=== PATIENT | female | born 1950 | race Caucasian/White ===

== ENCOUNTER 2023-12-05 16:50 | Emergency (ER) | payer MEDICARE, SELFPAY ==
[2023-12-05 17:04] VITALS: BP 219/88; PULSE 62; RESP 16; TEMP 37.2; O2SAT 96; BMI 20.9
--- NOTE | 2023-12-05 18:34 | ED_ITS ---
HPI - Fall <Nikita Canseco PA-C - Last Filed: 12/05/23 21:19> General Chief Complaint: Fall Stated Complaint: fall, head injury Time Seen by Provider: 12/05/23 18:33 Source: patient Mode of arrival: Ambulatory History of Present Illness HPI Narrative: This is a 73-year-old female presents emergency department due to a mechanical ground level fall. She was working with a long stick to cut branches when she fell backwards hitting her head on the ground. She had not lose conscious. This happened a couple of hours ago. She does not report any slurred speech, facial drooping, extremity weakness. Tetanus is not up-to-date. Not on blood thinners. Denies any neck pain or any extremity pain or pain to the rest of her body. Related Data Previous Rx's Medication Instructions Recorded amlodipine 10 mg tablet 10 mg PO DAILY #30 tabs 12/05/23 aspirin 81 mg capsule 81 mg PO DAILY #60 caps 12/05/23 clopidogrel 75 mg tablet (Plavix) 75 mg PO DAILY #21 tabs 12/05/23 Allergies Allergy/AdvReac Type Severity Reaction Status Date / Time codeine Allergy Anaphylaxis Verified 12/05/23 17:03 latex Allergy Anaphylaxis Verified 12/05/23 17:03 morphine Allergy Anaphylaxis Verified 12/05/23 17:03 soap Allergy Anaphylaxis Verified 12/05/23 17:03 Review of Systems <Nikita Canseco PA-C - Last Filed: 12/05/23 21:19> Review of Systems Narrative: GENERAL: Denies chills, fatigue, malaise, fever, sweats. HEENT: Reports head pain Denies sinus pain, ear pain, sore throat, difficulty swallowing, dizziness. RESPIRATORY: Denies dyspnea, cough, wheezing, hemoptysis, sputum. CARDIOVASCULAR: Denies chest pain, palpitations, orthopnea, edema, GASTROINTESTINAL: Denies nausea, vomiting, abdominal pain, diarrhea, constipation, melena. : Denies dysuria, frequency, incontinence, hematuria, urinary retention. MUSCULOSKELETAL: denies weakness, joint pain, or bony pain SKIN: Denies rash, skin lesions, or other NEUROLOGIC: Denies weakness, headache, numbness, change in speech, confusion, seizures, incoordination. PSYCHIATRIC: No concerning psychosocial issues. 12 point review of systems is negative except for those stated above Patient History <Nikita Canseco PA-C - Last Filed: 12/05/23 21:19> Social History Smoking Status: Never smoker Smoking Status: Never smoker Substance Use Type: does not use Exam <Nikita Canseco PA-C - Last Filed: 12/05/23 21:19> Narrative Exam Narrative: GENERAL: Well-developed patient, in mild distress. HEAD: Atraumatic. Normocephalic. EYES: Pupils equal round and reactive. Extraocular motions intact. No scleral icterus. No injection or drainage. ENT: Nose without bleeding, purulent drainage. Throat without erythema, tonsillar hypertrophy or exudate. Airway patent. NECK: Trachea midline. Non tender cervical spine EXTREMITIES: No edema or joint tenderness. NEURO: AOx3. Cranial nerves 2-12 intact SKIN: Superficial abrasion with dried blood to the scalp, no deeper lacerations CARDIOVASCULAR: Regular rate and rhythm without murmurs, gallops, or rubs. RESPIRATORY: Clear to auscultation. Breath sounds equal bilaterally. No wheezes, rales, or rhonchi. GASTROINTESTINAL: Abdomen soft, non-tender, nondistended. BACK: Nontender without deformity or crepitance. No flank tenderness. Initial Vital Signs Initial Vital Signs: Vital Signs Temperature 99 F 12/05/23 17:04 Pulse Rate 62 12/05/23 17:04 Respiratory Rate 16 12/05/23 17:04 Blood Pressure 219/88 H 12/05/23 17:04 Pulse Oximetry 96 12/05/23 17:04 Oxygen Delivery Method Room Air 12/05/23 17:04 <Amirah Hernández MD - Last Filed: 12/06/23 03:24> Initial Vital Signs Initial Vital Signs: Vital Signs Temperature 99 F 12/05/23 17:04 Pulse Rate 62 12/05/23 17:04 Respiratory Rate 16 12/05/23 17:04 Blood Pressure 219/88 H 12/05/23 17:04 Pulse Oximetry 96 12/05/23 17:04 Oxygen Delivery Method Room Air 12/05/23 17:04 Course <Nikita Canseco PA-C - Last Filed: 12/05/23 21:19> Orders Ordered: ED Orders 12/05/23 18:44 CT head/brain wo con Stat 12/05/23 19:52 CT angio head and neck Stat Discontinued Medications Amlodipine Besylate (Amlodipine 5 Mg Tablet) 10 mg PO NOW ONE Stop: 12/05/23 20:37 Last Admin: 12/05/23 20:40 Dose: 10 mg Documented By: HNG Diphtheria/Tetanus/Acell Pertussis (Tet,Diph,Pertuss(Acell),Vac/Pf 0.5 Ml Syringe) 0.5 ml IM .ONCE ONE Stop: 12/05/23 18:45 Last Admin: 12/05/23 19:12 Dose: 0.5 ml Documented By: RB Vital Signs Vital signs: Vital Signs - 8 hr 12/05/23 19:30 12/05/23 20:32 12/05/23 21:11 Pulse Rate 64 65 78 Respiratory Rate 15 16 16 Blood Pressure 210/92 H 260/100 H 222/86 H Pulse Oximetry 96 97 Oxygen Delivery Method Room Air Room Air <Amirah Hernández MD - Last Filed: 12/06/23 03:24> Orders Ordered: ED Orders 12/05/23 18:44 CT head/brain wo con Stat 12/05/23 19:52 CT angio head and neck Stat Discontinued Medications Amlodipine Besylate (Amlodipine 5 Mg Tablet) 10 mg PO NOW ONE Stop: 12/05/23 20:37 Last Admin: 12/05/23 20:40 Dose: 10 mg Documented By: HNG Diphtheria/Tetanus/Acell Pertussis (Tet,Diph,Pertuss(Acell),Vac/Pf 0.5 Ml Syringe) 0.5 ml IM .ONCE ONE Stop: 12/05/23 18:45 Last Admin: 12/05/23 19:12 Dose: 0.5 ml Documented By: RB Vital Signs Vital signs: Vital Signs - 8 hr 12/05/23 19:30 12/05/23 20:32 12/05/23 21:11 Pulse Rate 64 65 78 Respiratory Rate 15 16 16 Blood Pressure 210/92 H 260/100 H 222/86 H Pulse Oximetry 96 97 Oxygen Delivery Method Room Air Room Air MDM - Fall <Nikita Canseco PA-C - Last Filed: 12/05/23 21:19> Imaging Data CT scan - head: Radiologist's Impression: [address] [address] [address] Scan Report Signed Patient: Edith Sofia MR#: [id number] : 1950 Acct:[id number] Age/Sex: 73 / F Date of Service: 12/05/23 Loc: ED Accession Number: [id number] Procedure: CT head/brain wo con Ordering Provider: Nikita Canseco P.A-C PROCEDURE: CT HEAD/BRAIN WO CON INDICATIONS: Head injury TECHNIQUE: Noncontrast 4.5 mm thick angled axial sections acquired from the foramen magnum to the vertex, with coronal and sagittal reformats. For radiation dose reduction, the following was used: automated exposure control, adjustment of mA and/or kV according to patient size. COMPARISON: None. FINDINGS: Image quality: Diagnostic. CSF spaces: Basal cisterns are patent. No extra-axial fluid collections. Ventricles are normal in size and shape. Brain: No midline shift. No intracranial masses or hemorrhage. Area of hypodensity at the left parietal/occipital lobe, (11/15). Periventricular hypodensity consistent with chronic microvascular ischemic change. Age-related parenchymal loss. Skull and face: Calvarium and visualized facial bones are intact, without suspicious lesions. Sinuses: Mild mucosal thickening at the right maxillary sinus and paranasal sinuses. Mastoids are clear. IMPRESSION: No acute intracranial hemorrhage. Area of hypodensity at the left parietal/occipital lobe. Suspect evolving infarct. Recommend follow-up brain MRI. Dictated by: Yunior Delcid M.D. on 12/05/2023 at 19:14 Approved by: Yunior Delcid M.D. on 12/05/2023 at 19:17 CTA - brain/neck: Radiologist's Impression: [place] [address] CT Scan Report Signed Patient: Edith Sofia MR#: [id number] : 1950 Acct:[id number] Age/Sex: 73 / F Date of Service: 12/05/23 Loc: ED Accession Number: [id number] Procedure: CT angio head and neck Ordering Provider: Nikita Canseco P.A-C PROCEDURE: CT ANGIO HEAD AND NECK INDICATIONS: f/u possible evolving infarct TECHNIQUE: After the administration of intravenous contrast, 1 mm thick sections acquired from the aortic arch through the [place] of [place]. 3-dimensional cetmzyl-mpbhwhyoa-uzqpbxughc (MIP) and/or volume rendering reformats were acquired of the central intracranial vasculature and neck separately. For radiation dose reduction, the following was used: automated exposure control, adjustment of mA and/or kV according to patient size. COMPARISON: [facility], CT, CT HEAD/BRAIN WO CON, 12/05/2023, 18:50. FINDINGS: Image quality: Diagnostic. BRAIN: CSF spaces: Ventricles are normal in size and shape. Basal cisterns are patent. No extra-axial fluid collections. Brain: No significant abnormality of the brain can be seen. Skull and face: Calvarium and facial bones appear intact, without suspicious lesions. Orbits appear normal. Sinuses: Sinuses and mastoids are clear. HEAD CT ANGIOGRAPHY: Anterior circulation: Intracranial internal carotid arteries are normal in size and flow. The flow within the paired anterior cerebral arteries is normal and symmetric. The flow within the middle cerebral arteries is normal and symmetric. The anterior communicating artery is seen. No aneurysms are seen. Posterior circulation: Visualized portions of the vertebral arteries demonstrate normal caliber, and join to form a normal appearing basilar artery. Flow within the posterior cerebral arteries is normal and symmetric. No aneurysms are seen. NECK CT ANGIOGRAPHY: Carotid system: The great vessels demonstrate a conventional anatomy as they arise from the aortic arch. The origins of the common carotid arteries appear patent. The common carotid arteries demonstrate normal caliber and courses. The bifurcation regions are both widely patent. The internal carotid arteries demonstrate normal calibers and courses. Posterior circulation: The origins of the vertebral arteries both appear widely patent. The more superior extracranial portions of both vertebral arteries also demonstrate normal courses and calibers. They join to form a normal appearing basilar artery. Soft tissues: Visualized neck soft tissues demonstrate no suspicious abnormalities. Bones: No suspicious bony lesions. Visualized cervical spine appears normally aligned. IMPRESSION: 1. No significant intracranial arterial abnormality is seen. 2. No significant abnormality is seen within the arteries of the neck. Any quantitative measurements of stenosis were performed using NASCET criteria. Dictated by: Nacho Jin M.D. on 12/05/2023 at 20:46 Approved by: Nacho Jin M.D. on 12/05/2023 at 20:47 MDM Narrative Medical decision making narrative: ED course: This is a 73-year-old female presents to the emergency department due to mechanical ground level fall. She did hit her head but did not lose conscious. She did have a superficial abrasion to the scalp but no evidence of any deeper lacerations that would benefit from any staple closure. Did not have any neck pain and no other pain to the remainder of her body. Did order a CT head which showed a possible evolving infarct. Discussed the findings with the radiologist who suspected that these were chronic in nature. CTA head and neck were ordered which showed no abnormalities which was reassuring. Discussed case with my attending physician, Dr. Hernández, throughout the encounter. Patient was prescribed dual anti platelet therapy using aspirin and Plavix with the recommendations to follow up with the primary care provider for discussing the continuation of the aspirin as well as monitoring of the infarct. Patient's blood pressure was also noted to be elevated although she was not reporting any chest pain, shortness of breath, headaches, vision changes, or any other conc erning signs or symptoms. We will start on amlodipine 10 mg the recommendation she follow up with the primary care provider for further discussion and possible tapering. CC: Head injury Complicating co-morbidities: None Data collected from: Previous notes Medical records reviewed: Patient was not been to this emergency department in the past Differential considered, but not limited to: Intracranial bleed, ischemic stroke, concussion, skull fracture Exam documented above, pertinent findings include: Patient has no neuro changes on exam Lab Test results independently reviewed as above. Pertinent findings: None obtained Imaging studies independently reviewed: As noted above Scores Used: None MIPS Elements: None Consultations: None Treatments: Amlodipine 10 mg Re-evaluations: None Discussion: Discussed plan with the patient was comfortable with the plan Diagnosis: Intracranial infarct Disposition: see below, along with detailed discharge instructions that have been reviewed with patient as well as indications for ED re-evaluation and additional outpatient follow up Discharge Plan Departure Patient Disposition: Home Clinical Impression: Focal infarction of brain Activity Restrictions/Additional Instructions: Thank you for coming to the [facility] Emergency Department today. As we discussed your CT showed a infarct in part of your brain. This will require monitoring 3 your primary care provider. Please follow up with the in 1 week to discuss further monitoring. Please also take the Plavix and the aspirin for 3 weeks. After 3 weeks you may stop taking the Plavix but please continue taking the aspirin. We have also started you on a blood pressure medication called amlodipine to help with the elevated blood pressures. Please follow up with the primary care provider in 1 week to discuss the continuation and plan for all of these medications. Please be careful with your head wound. There does not appear to be any deeper areas that would benefit from any sangeetha but please be careful while you are washing her hair to avoid opening of the skin any further. Please return to the emergency department if you develop any facial drooping, slurred speech, dizziness, severe head pain, or any other concerning signs or symptoms. I hope you feel better soon. Please follow up with your primary care provider within a week if your symptoms continue. If you do not have a primary care provider please contact the [facility] Resource line at [phone]. They will ask some questions about your medical history and help you get set up with a provider in the community. Prescriptions: New aspirin 81 mg capsule 81 mg PO DAILY Qty: 60 0RF amlodipine 10 mg tablet 10 mg PO DAILY Qty: 30 0RF clopidogrel [Plavix] 75 mg tablet 75 mg PO DAILY Qty: 21 0RF Stand Alone Forms: Patient Portal/API ED Sign-out <Amirah Hernández MD - Last Filed: 12/06/23 03:24> Cosign ED Attending Cosamandaature Attestation: I did not physically evaluate this patient. Reviewed PA note and plan. Patient is to be started on amlodipine and to follow up with primary care.
--- NOTE | 2023-12-05 18:44 | DI.CT.S_ITS ---
PROCEDURE: CT HEAD/BRAIN WO CON INDICATIONS: Head injury TECHNIQUE: Noncontrast 4.5 mm thick angled axial sections acquired from the foramen magnum to the vertex, with coronal and sagittal reformats. For radiation dose reduction, the following was used: automated exposure control, adjustment of mA and/or kV according to patient size. COMPARISON: None. FINDINGS: Image quality: Diagnostic. CSF spaces: Basal cisterns are patent. No extra-axial fluid collections. Ventricles are normal in size and shape. Brain: No midline shift. No intracranial masses or hemorrhage. Area of hypodensity at the left parietal/occipital lobe, (11/15). Periventricular hypodensity consistent with chronic microvascular ischemic change. Age-related parenchymal loss. Skull and face: Calvarium and visualized facial bones are intact, without suspicious lesions. Sinuses: Mild mucosal thickening at the right maxillary sinus and paranasal sinuses. Mastoids are clear. IMPRESSION: No acute intracranial hemorrhage. Area of hypodensity at the left parietal/occipital lobe. Suspect evolving infarct. Recommend follow-up brain MRI. Dictated by: Yunior Delcid M.D. on 12/05/2023 at 19:14 Approved by: Yunior Delcid M.D. on 12/05/2023 at 19:17
[2023-12-05] MEDS: TET,DIPH,PERTUSS(ACELL),VAC/PF 0.5 ML SYRINGE IM (19:12)
[2023-12-05 19:30] VITALS: BP 210/92; PULSE 64; RESP 15; O2SAT 96
--- NOTE | 2023-12-05 19:52 | DI.CT.S_ITS ---
PROCEDURE: CT ANGIO HEAD AND NECK INDICATIONS: f/u possible evolving infarct TECHNIQUE: After the administration of intravenous contrast, 1 mm thick sections acquired from the aortic arch through the [place] of [place]. 3-dimensional rfsyklh-tfjrtelxc-bzpqkzovax (MIP) and/or volume rendering reformats were acquired of the central intracranial vasculature and neck separately. For radiation dose reduction, the following was used: automated exposure control, adjustment of mA and/or kV according to patient size. COMPARISON: [facility], CT, CT HEAD/BRAIN WO [facility], 12/05/2023, 18:50. FINDINGS: Image quality: Diagnostic. BRAIN: CSF spaces: Ventricles are normal in size and shape. Basal cisterns are patent. No extra-axial fluid collections. Brain: No significant abnormality of the brain can be seen. Skull and face: Calvarium and facial bones appear intact, without suspicious lesions. Orbits appear normal. Sinuses: Sinuses and mastoids are clear. HEAD CT ANGIOGRAPHY: Anterior circulation: Intracranial internal carotid arteries are normal in size and flow. The flow within the paired anterior cerebral arteries is normal and symmetric. The flow within the middle cerebral arteries is normal and symmetric. The anterior communicating artery is seen. No aneurysms are seen. Posterior circulation: Visualized portions of the vertebral arteries demonstrate normal caliber, and join to form a normal appearing basilar artery. Flow within the posterior cerebral arteries is normal and symmetric. No aneurysms are seen. NECK CT ANGIOGRAPHY: Carotid system: The great vessels demonstrate a conventional anatomy as they arise from the aortic arch. The origins of the common carotid arteries appear patent. The common carotid arteries demonstrate normal caliber and courses. The bifurcation regions are both widely patent. The internal carotid arteries demonstrate normal calibers and courses. Posterior circulation: The origins of the vertebral arteries both appear widely patent. The more superior extracranial portions of both vertebral arteries also demonstrate normal courses and calibers. They join to form a normal appearing basilar artery. Soft tissues: Visualized neck soft tissues demonstrate no suspicious abnormalities. Bones: No suspicious bony lesions. Visualized cervical spine appears normally aligned. IMPRESSION: 1. No significant intracranial arterial abnormality is seen. 2. No significant abnormality is seen within the arteries of the neck. Any quantitative measurements of stenosis were performed using NASCET criteria. Dictated by: Nacho Jin M.D. on 12/05/2023 at 20:46 Approved by: Nacho Jin M.D. on 12/05/2023 at 20:47
[2023-12-05 20:32] VITALS: BP 260/100; PULSE 65; RESP 16
[2023-12-05] MEDS: AMLODIPINE 5 MG TABLET 10 MG PO (20:40)
[2023-12-05 21:11] VITALS: BP 222/86; PULSE 78; RESP 16; O2SAT 97
== END 2023-12-05 21:25 | disposition home or self-care (01) ==
PROVIDERS: Emergency Provider Physician Assistant Medical
DX: I63.9 Cerebral infarction, unspecified (principal); W18.30XA Fall on same level, unspecified, initial encounter; Z23 Encounter for immunization
CPT/HCPCS: 70450; 70496; 70498; 90471; 99284; 90715; Q9967

== ENCOUNTER 2024-02-26 12:38 | Emergency (ER) | payer MEDICARE, SELFPAY ==
[2024-02-26] VITALS (8 sets, daily range): BP systolic 152–219; BP diastolic 67–94; PULSE 56–73; RESP 18–26; TEMP 37.1; O2SAT 95–99; BMI 20.9
--- NOTE | 2024-02-26 12:51 | DI.RAD.S_ITS ---
PROCEDURE: XR CHEST 1V INDICATIONS: chest pain TECHNIQUE: One view of the chest was acquired. COMPARISON: None. FINDINGS: Surgical changes and devices: None. Lungs and pleura: Lungs are clear. Biapical emphysematous change. No pleural effusions or pneumothorax. Mediastinum: Mediastinal contours appear normal. Heart size is normal. Bones and chest wall: No suspicious bony lesions. Overlying soft tissues appear unremarkable. IMPRESSION: COPD. No evidence acute pulmonary process. Dictated by: Cyrus Goodman M.D. on 02/26/2024 at 14:11 Approved by: Cyrus Goodman M.D. on 02/26/2024 at 14:11
--- NOTE | 2024-02-26 12:53 | EKG_ITS ---
[address] [address] Test Date: 2024-02-26 Pat Name: Edith Sofia Department: Room: Gender: Female Rn Social Services: EVON : 1950 Requested By: Order Number: [id number] Reading MD: Srinivasan Danielson Measurements Intervals [place] Rate: 62 P: 56 AR: 152 QRS: -29 QRSD: 78 T: 71 QT: 460 QTc: 466 Interpretive Statements Normal sinus rhythm Moderate voltage criteria for LVH, may be normal variant ( R in aVL , Maxwell product ) Septal infarct , age undetermined Electronically Signed On 03-02-2024 9:11:17 PDT by Srinivasan Danielson
--- NOTE | 2024-02-26 13:16 | ED.CHESTPAIN ---
HPI - Chest Pain General Chief Complaint: Chest Pain Stated Complaint: chest pain, poss heart attack Time Seen by Provider: 02/26/24 13:16 Source: patient Mode of arrival: Wheelchair Limitations: no limitations History of Present Illness HPI narrative: Patient with past medical history of hypertension comes into the ED from home for evaluation of chest pain/pressure. States it started approximately 1-1/2 our goals while she was walking her dog. States that it is to her chest radiates her right arm. States that it is improved but still there currently. She denies any shortness of breath. Denies any trauma or falls denies any recent travel or sick contacts. She denies any other symptoms such as headache visual disturbances fever chills nausea vomiting abdominal pain or any other GI/ symptoms at this time. Related Data Previous Rx's Medication Instructions Recorded amlodipine 10 mg tablet 10 mg PO DAILY #30 tabs 12/05/23 aspirin 81 mg capsule 81 mg PO DAILY #60 caps 12/05/23 clopidogrel 75 mg tablet (Plavix) 75 mg PO DAILY #21 tabs 12/05/23 Allergies Allergy/AdvReac Type Severity Reaction Status Date / Time codeine Allergy Anaphylaxis Verified 02/26/24 12:51 latex Allergy Anaphylaxis Verified 02/26/24 12:51 morphine Allergy Anaphylaxis Verified 02/26/24 12:51 soap Allergy Anaphylaxis Verified 02/26/24 12:51 Review of Systems Review of Systems Narrative: HEENT: Denies headache, eye drainage, eye irritation, head trauma, sore throat, voice change Cardiovascular: Positive chest pain, Denies palpitations, shortness of breath, tachycardia Respiratory: Denies any shortness of breath, cough, wheeze, stridor GI/: Denies any abdominal pain, nausea, vomiting, diarrhea, bright red blood per rectum, melanotic stools, urinary frequency, urinary retention, dysuria, hematuria MSK: Denies any joint pain, muscle pains, swelling Skin: Denies any rashes, lesions, discoloration Neuro: Denies any headache, lightheadedness, dizziness, fainting, weakness Psych: Denies SI/HI Patient History Social History Smoking Status: Never smoker Smoking Status: Never smoker alcohol intake frequency: 0-2 drinks per day Substance Use Type: does not use Exam Narrative Exam Narrative: General: Cooperative, comfortable, well-developed, not in acute distress HEENT: Normocephalic, atraumatic, PERRLA, normal sclera, eyelids normal, Neck: Active full range of motion, atraumatic Chest: Normal to inspection, negative crepitus, no overlying erythema ecchymosis Respiratory: Normal respiratory effort, not in acute respiratory distress, clear to auscultation bilaterally negative cough, wheeze, tachypnea, rhonchi, rales Cardiology: Regular rate rhythm negative gallop, murmur, rubs GI/: Normal to inspection, soft, nonrigid, no tenderness to palpation, exam deferred MSK: Full range of active range of motion of all 4 extremities, atraumatic Skin: No rashes lesions noted Neuro: Alert awake oriented x3, moves all 4 extremities spontaneously, cranial nerves intact, able to answer all questions appropriately follows commands appropriately Psych: Cooperative, negative suicidal or homicidal ideations Initial Vital Signs Initial Vital Signs: Vital Signs Temperature 98.7 F 02/26/24 12:39 Pulse Rate 69 02/26/24 12:39 Respiratory Rate 18 02/26/24 12:39 Blood Pressure 219/94 H 02/26/24 12:39 Pulse Oximetry 96 02/26/24 12:39 Oxygen Delivery Method Room Air 02/26/24 12:39 Course Orders Ordered: ED Orders 02/26/24 12:51 XR chest 1V Stat Comprehensive Metabolic Panel Stat Lipase Stat Magnesium Stat NT-proBNP (BNP-Adult 18+) Stat Troponin & CK Cardiac Panel Stat EKG-12 Lead Stat 02/26/24 13:22 Complete Blood Count AUTO DIFF Stat Prothrombin Time INR Stat 02/26/24 15:15 Trop I [Troponin I] Stat Sodium Chloride (Normal Saline 0.9%) 1,000 mls @ 150 mls/hr IV CONT NAMAN Discontinued Medications Aspirin (Aspirin 81 Mg Chew Tab) 324 mg PO NOW ONE Stop: 02/26/24 12:52 Vital Signs Vital signs: Vital Signs - 8 hr 02/26/24 12:39 02/26/24 12:44 02/26/24 12:46 Temperature 98.7 F Pulse Rate 69 73 66 Respiratory Rate 18 Blood Pressure 219/94 H Pulse Oximetry 96 95 95 Oxygen Delivery Method Room Air 02/26/24 12:46 02/26/24 13:00 02/26/24 15:00 Temperature Pulse Rate 60 60 Respiratory Rate Blood Pressure 219/94 H Pulse Oximetry 99 95 Oxygen Delivery Method 02/26/24 15:04 02/26/24 15:04 02/26/24 15:30 Temperature Pulse Rate 56 L 62 Respiratory Rate 26 H Blood Pressure 168/72 H Pulse Oximetry 98 96 Oxygen Delivery Method 02/26/24 15:30 Temperature Pulse Rate Respiratory Rate Blood Pressure 152/70 H Pulse Oximetry Oxygen Delivery Method MDM - Chest Pain Differential Diagnosis Differential diagnosis: Likely atypical chest pain, st elevation myocardial infarction and other (NSTEMI) Condition is:: Improved Medical Records Data Attestation: I reviewed the patient's medical records. Lab Data Attestation: I reviewed the patient's lab results. 02/26/24 13:22 02/26/24 12:51 Labs: Lab Results 02/26/24 02/26/24 02/26/24 Range/Units 12:51 13:22 15:15 WBC 5.9 (4.5-11.0) X10^3/uL RBC 4.72 (4.0-5.2) X10^6/uL Hgb 14.8 (12.0-16.0) g/dL Hct 43.4 (36-46) % MCV 92.0 (80-100) fL MCH 31.3 (26-34) PG MCHC 34.0 (30-36) % RDW 12.6 (11.6-14.8) % Plt Count 245 (150-400) X10^3/uL Neut % (Auto) 66.6 (50-75) % Lymph % (Auto) 21.3 L (25-40) % [place] % (Auto) 7.9 (3-14) % Eos % (Auto) 3.9 (2-4) % Baso % (Auto) 0.3 (0-2) % Neut # (Auto) 3900 (6043-4530) /uL Lymph # (Auto) 1200 (3962-6199) /uL [place] # (Auto) 500 (0-900) /uL Eos # (Auto) 200 (0-450) /uL Baso # (Auto) 0 (0-100) /uL PT 9.3 L (9.4-12.5) SECONDS INR 0.8 L (0.9-1.3) Sodium 136 L (137-145) mmol/L Potassium 3.9 (3.4-5.1) mmol/L Chloride 100 (98-107) mmol/L Carbon Dioxide 27 (22-32) mmol/L BUN 22 H (7-17) mg/dL Creatinine 0.80 (0.52-1.04) mg/dL Estimated GFR > 60 (>60) mL/min BUN/Creatinine Ratio 27.5 H (6-22) Glucose 118 H (80-110) mg/dL Calcium 9.3 (8.4-10.2) mg/dL Magnesium 2.5 H (1.6-2.3) mg/dL Total Bilirubin 0.5 (0.2-1.3) mg/dL AST 47 H (14-36) IU/L ALT 24 (<35) IU/L Alkaline Phosphatase 78 (38-126) U/L Total Creatine Kinase 128 (30-135) U/L Troponin I 0.016 0.050 H (0.01-0.034) ng/mL NT-Pro-B Natriuret Pep 252 H (<125) pg/mL Total Protein 8.2 (6.3-8.2) g/dL Albumin 4.7 (3.5-5.0) g/dL Globulin 3.5 (1.7-4.1) g/dL Albumin/Globulin Ratio 1.3 (1.0-2.8) Lipase 103 (23-300) U/L ECG Data Attestation: I personally reviewed and interpreted this ECG as follows: Interpretation: EKG interpreted ED physician, sinuses 62 beats per minute, QTC 466, left axis deviation, nonspecific ST changes no STEMI MDM Narrative Medical decision making narrative: Patient is a 73-year-old female past medical history of hypertension, comes into the ED from home for evaluation of chest pain started 1-1/2 hours prior to arrival describes it as pressure nothing making it better or worse. EKG nonischemic in nature, lab work showing up trending troponin concerning for NSTEMI, patient currently asymptomatic, I informed patient of need for admission and possible transfer given patient with lab work and findings consistent for NSTEMI, she states that she does not want to be admitted or transferred, she states that she would rather drive to a different hospital. She states that she will have her who is at bedside do this. I informed her that this would be leaving against medical advice, she states that she understands. Patient will be leaving against medical advice Discharge Plan Departure Patient Disposition: Left Against Medical Advice Clinical Impression: Acute non-ST elevation myocardial infarction (NSTEMI), Left against medical advice Chest pain Qualifiers: Chest pain type: other chest pain Qualified Code(s): R07.89 - Other chest pain Activity Restrictions/Additional Instructions: We have discussed and explained the clinical examination, laboratory results, and imaging studies so far with the patient, both with full medical disclosure and layman's terms. The patient is an adult and is of sound mind. The patient appears to have intact insight, judgement and reason. Is alert and oriented x4. The patient is clinically sober and appears free from any distracting injury. The patient verbalized understanding. Despite incomplete workup the patient expresses a wish to leave. We have explained to the patient that leaving now would be leaving against medical advice. We have explained that leaving against medical advice without a complete workup and/or identification of pathology may lead to worsening of symptoms and even the possibility of disability or . The patient understands that the only way to safely avoid this is to complete the workup as leaving the grounds of the hospital would be leaving the care of trained certified medical transcriptionist, specialists, and resources that were available to the patient. We have expressed the need for the patient to stay in the hospital, considering the constellation of symptoms of breath the patient here. Despite this lengthy conversation the patient still expresses desire to leave against medical advice and demonstrates a full capacity to make their own medical decisions. We have informed the patient to call 911 or to seek immediate medical attention at their nearest emergency department if there are symptoms were to worsen/or change their mind. Prescriptions: No Action aspirin 81 mg capsule 81 mg PO DAILY Qty: 60 0RF amlodipine 10 mg tablet 10 mg PO DAILY Qty: 30 0RF clopidogrel [Plavix] 75 mg tablet 75 mg PO DAILY Qty: 21 0RF Stand Alone Forms: Patient Portal/API, Against Medical Advice
[2024-02-26 13:35] LABS: Add Manual Diff / Slide Review NO; Basophils Absolute Auto 0 /uL (0-100); Basophils Percent Auto 0.3 % (0-2); Eosinophils Absolute Auto 200 /uL (0-450); Eosinophils Percent Auto 3.9 % (2-4); Hematocrit 43.4 % (36-46); Hemoglobin 14.8 g/dL (12.0-16.0); Lymphocytes Absolute Auto 1200 /uL (1100-4500); Lymphocytes Percent Auto 21.3 % (25-40); Mean Corpuscular Hemoglobin 31.3 PG (26-34); Monocytes Absolute Auto 500 /uL (0-900); Monocytes Percent Auto 7.9 % (3-14); Neutrophils Absolute Auto 3900 /uL (1500-7000); Neutrophils Percent Auto 66.6 % (50-75); Platelet Count 245 X10^3/uL (150-400); Red Blood Cell Count 4.72 X10^6/uL (4.0-5.2); Red Cell Distribution Width 12.6 % (11.6-14.8); White Blood Cell Count 5.9 X10^3/uL (4.5-11.0)
[2024-02-26 13:49] LABS: INR 0.8 (0.9-1.3); Prothrombin Time 9.3 SECONDS (9.4-12.5)
[2024-02-26 13:58] LABS: Alanine Aminotransferase 24 IU/L (<35); Albumin 4.7 g/dL (3.5-5.0); Albumin Globulin Ratio 1.3 (1.0-2.8); Alkaline Phosphatase 78 U/L (38-126); Aspartate Aminotransferase 47 IU/L (14-36); BUN Creatinine Ratio 27.5 (6-22); Bilirubin Total 0.5 mg/dL (0.2-1.3); Blood Urea Nitrogen 22 mg/dL (7-17); Calcium 9.3 mg/dL (8.4-10.2); Carbon Dioxide 27 mmol/L (22-32); Chloride 100 mmol/L (98-107); Creatine Kinase 128 U/L (30-135); Estimated Glomerular Filt Rate > 60 mL/min (>60); Globulin 3.5 g/dL (1.7-4.1); Glucose 118 mg/dL (80-110); HEMOLYSIS < 15 (0-50); Lipase 103 U/L (23-300); Potassium 3.9 mmol/L (3.4-5.1); Sodium 136 mmol/L (137-145); Total Protein 8.2 g/dL (6.3-8.2)
[2024-02-26 14:04] LABS: Magnesium 2.5 mg/dL (1.6-2.3)
[2024-02-26 14:09] LABS: NT-proBNP (BNP-Adult 18+) 252 pg/mL (<125); Troponin I 0.016 ng/mL (0.01-0.034)
[2024-02-26] MEDS: ASPIRIN 81 MG CHEW TAB 324 MG PO (16:37)
== END 2024-02-26 16:41 | disposition left against medical advice (07) ==
PROVIDERS: Emergency Provider Student in an Organized Health Care Education/Training Program
DX: I21.4 Non-ST elevation (NSTEMI) myocardial infarction (principal); Z53.29 Procedure and treatment not carried out because of patient's decision for other reasons
CPT/HCPCS: 36415; 71045; 80053; 82550; 83690; 83735; 83880; 84484; 85025; 85610; 93005; 99284

== ENCOUNTER 2024-11-23 14:57 | Emergency (ER) | payer MEDICARE, SELFPAY ==
[2024-11-23] VITALS (10 sets, daily range): BP systolic 188–262; BP diastolic 80–106; PULSE 59–71; RESP 16–20; TEMP 36.6; O2SAT 93–100; BMI 21.7
--- NOTE | 2024-11-23 15:59 | DI.CT.S_ITS ---
PROCEDURE: CT HEAD/BRAIN WO CON INDICATIONS: fall, hit head on blood thinners TECHNIQUE: Noncontrast 4.5 mm thick angled axial sections acquired from the foramen magnum to the vertex, with coronal and sagittal reformats. For radiation dose reduction, the following was used: automated exposure control, adjustment of mA and/or kV according to patient size. COMPARISON: [facility], CT, CT HEAD/BRAIN WO CON, 12/05/2023, 18:50. FINDINGS: Image quality: Diagnostic CSF spaces: Basal cisterns are patent. Lateral ventricles are symmetric. Volume: Vascular calcifications. Periventricular white matter disease is commonly seen with chronic microangiopathy. Volume loss is present. These findings are moderate Brain: Left frontal parietal encephalomalacia is similar to prior imaging. No new gross loss of alfred-white differentiation. No acute hematoma. Craniofacial structures: No significant paranasal sinus opacity. IMPRESSION: No acute intracranial pathology. Dictated by: Amrit Moss M.D. on 11/23/2024 at 17:06 Approved by: Amrit Moss M.D. on 11/23/2024 at 17:08
--- NOTE | 2024-11-23 15:59 | DI.CT.S_ITS ---
PROCEDURE: CT CERVICAL SPINE WO CON INDICATIONS: fall, hit head on blood thinners TECHNIQUE: Noncontrast 3 mm thick sections acquired from the skull base to the T4 level. Sagittal and coronal reformats were then constructed. For radiation dose reduction, the following was used: automated exposure control, adjustment of mA and/or kV according to patient size. COMPARISON: None. FINDINGS: Image quality: Diagnostic Bones: Moderate multilevel degenerative changes with disc space height loss most significant at C5-C6 and C6-C7. Trace anterolisthesis of C3 on C4 and C4 on C5 likely degenerative. No definite traumatic subluxation. No acute appearing vertebral body height loss. Soft tissues: No apical pneumothorax. No pathologic prevertebral swelling IMPRESSION: Moderate spondylosis. No acute displaced fracture or traumatic subluxation. If there is high concern for further derangement, consider MRI evaluation. Dictated by: Amrit Moss M.D. on 11/23/2024 at 17:14 Approved by: Amrit Moss M.D. on 11/23/2024 at 17:16
--- NOTE | 2024-11-23 16:00 | DI.CT.S_ITS ---
PROCEDURE: CT FACIAL BONES WO CON INDICATIONS: fall, hit head on blood thinners TECHNIQUE: Noncontrast 2.5 mm thick axial images acquired from the mandible through the frontal sinuses, with coronal and sagittal reformatting. For radiation dose reduction, the following was used: automated exposure control, adjustment of mA and/or kV according to patient size. COMPARISON: [facility], CT, CT ANGIO HEAD AND NECK, 12/05/2023, 20:01. FINDINGS: Image quality: Diagnostic Bones: Nonacute appearing minimal nasal bone deformity. Dental hardware sequelae. No displaced mandible fracture. No displaced orbital wall fracture. The zygomatic arches appear intact. Pterygoid plates appear intact. Sinuses and mastoids: Mild paranasal sinus mucosal thickening. No significant mastoid effusion. Soft tissues: Diffuse subcutaneous calcifications and ossifications again seen, of uncertain etiology. Brain: Separately dictated IMPRESSION: No acute displaced fracture is seen in the maxillofacial structures. Mild paranasal sinus mucosal thickening. Sequelae of dental disease and dental work. Diffuse subcutaneous soft tissue calcifications and ossifications of uncertain etiology, also seen previously. Dictated by: Amrit Moss M.D. on 11/23/2024 at 17:12 Approved by: Amrit Moss M.D. on 11/23/2024 at 17:14
--- NOTE | 2024-11-23 16:01 | DI.RAD.S_ITS ---
PROCEDURE: XR KNEE LT 3V INDICATIONS: fall TECHNIQUE: 3 views of the knee were acquired. COMPARISON: None. FINDINGS: Bones: No fractures or dislocations. Left knee arthroplasty in place. Hardware appears intact without surrounding fracture or lucency. No suspicious bony lesions. Soft tissues: Small joint effusion. No suspicious soft tissue calcifications. IMPRESSION: Left knee arthroplasty in place without evidence of complication. No definite acute fractures are seen. Dictated by: Shaka Park M.D. on 11/23/2024 at 16:50 Approved by: Shaka Park M.D. on 11/23/2024 at 16:50
--- NOTE | 2024-11-23 16:01 | DI.RAD.S_ITS ---
PROCEDURE: XR KNEE RT 3V INDICATIONS: fall TECHNIQUE: 3 views of the knee were acquired. COMPARISON: None. FINDINGS: Bones: No fractures or dislocations. Right knee arthroplasty. Hardware appears intact without surrounding fracture or lucency. No suspicious bony lesions. Soft tissues: Small joint effusion. No suspicious soft tissue calcifications. IMPRESSION: Right knee arthroplasty without evidence of complication. No definite acute fractures are seen. Dictated by: Shaka Park M.D. on 11/23/2024 at 16:51 Approved by: Shaka Park M.D. on 11/23/2024 at 16:52
--- NOTE | 2024-11-23 16:02 | DI.RAD.S_ITS ---
PROCEDURE: XR HAND LT MIN 3V INDICATIONS: fall TECHNIQUE: 3 views of the hand(s) acquired. COMPARISON: None. FINDINGS: Bones: No fractures or dislocations. [id number] degenerative changes throughout the hand. Carpal bones are normally aligned. No suspicious bony lesions. Soft tissues: No suspicious soft tissue calcifications. IMPRESSION: No acute osseous abnormality. If pain persists with conservative management, consider repeat x-ray in 10-14 days or cross-sectional imaging. Dictated by: Shaka Park M.D. on 11/23/2024 at 16:49 Approved by: Shaka Park M.D. on 11/23/2024 at 16:50
--- NOTE | 2024-11-23 21:13 | ED_ITS ---
HPI - Fall General Chief Complaint: Trauma Stated Complaint: fall, lip laceration. +blood thinners Time Seen by Provider: 11/23/24 21:09 Source: patient Mode of arrival: Ambulatory History of Present Illness HPI Narrative: Patient is a 74-year-old female history of CAD on Plavix and hypertension presenting today after mechanical ground level fall. She lives out of town but is up here visiting she tripped over something in the kitchen fell and hit her face. She was significant left-sided facial contusion she also cut her left side upper lip. No loss of consciousness no nausea or vomiting. Also complaining of left thumb pain and bilateral knee pain. Been in the waiting room for numerous hours without any worsening. Blood pressure is noted to be elevated but she says it is time for her blood pressure medication which he was losartan. No rib pain no neck pain no numbness tingling or weakness. Related Data Previous Rx's Medication Instructions Recorded amlodipine 10 mg tablet 10 mg PO DAILY #30 tabs 12/05/23 aspirin 81 mg capsule 81 mg PO DAILY #60 caps 12/05/23 clopidogrel 75 mg tablet (Plavix) 75 mg PO DAILY #21 tabs 12/05/23 Allergies Allergy/AdvReac Type Severity Reaction Status Date / Time codeine Allergy Anaphylaxis Verified 11/23/24 15:58 latex Allergy Anaphylaxis Verified 11/23/24 15:58 morphine Allergy Anaphylaxis Verified 11/23/24 15:58 soap Allergy Anaphylaxis Verified 11/23/24 15:58 Patient History Social History Smoking Status: Smoker, status unknown Smoking Status: Smoker, status unknown alcohol intake frequency: 0-2 drinks per day Exam Initial Vital Signs Initial Vital Signs: Vital Signs Temperature 98 F 11/23/24 15:45 Pulse Rate 61 11/23/24 15:45 Respiratory Rate 18 11/23/24 15:45 Blood Pressure 212/88 H 11/23/24 15:45 Pulse Oximetry 96 11/23/24 15:45 Oxygen Delivery Method Room Air 11/23/24 15:45 GENERAL: Alert pleasant 74-year-old female HEENT: Head atraumatic,EOMI, significant inferior periorbital swelling on the left side significant superior swelling. She also has a laceration of her left lip about 2 cm it goes through the vermilion border nECK supple no vertebral tenderness no step-off CARDIOVASCULAR: Regular rate and rhythm without murmurs, rubs or gallops. RESPIRATORY: Breath sounds equal bilaterally, no wheezes rales or rhonchi. No rib pain no paradoxical movement ABDOMEN: Soft, nontender. Normoactive bowel sounds all 4 quadrants. No guarding or rebound. : No CVA tenderness EXTREMITIES: Normal range of motion, no clubbing or edema. Neurovascularly intact NEUROLOGICAL: Alert and oriented x4.Normal gait and speech. Cranial nerves II through XII grossly intact. SKIN: Warm, dry, no laceration, no petechiae, no rashes or lesions. Procedures Laceration Repair Laceration 1: Site: lip (upper through vermilion border) Side (If applicable): left Size (cm): 2 Description: linear Depth: simple, single layer Local Anesthetic: lidocaine 1% and with epi Amount of anesthesia used (mL): 2 Pre-repair: wound explored, irrigated extensively and deep structures in tact Skin layer closed with: vicryl Skin layer suture size: 5-0 Number of sutures: 5 Technique: simple, interrupted Course Orders Ordered: Discontinued Medications Acetaminophen (Acetaminophen 325 Mg Tablet) 975 mg PO NOW ONE Stop: 11/23/24 21:14 Last Admin: 11/23/24 21:24 Dose: 975 mg Documented By: RENETTA Lidocaine/Epinephrine (Lidocaine 1% W/Epi 10ml) 1 ml SUBCUT NOW ONE Stop: 11/23/24 21:14 Last Admin: 11/23/24 21:21 Dose: 1 ml Documented By: RENETTA Losartan Potassium (Losartan 50 Mg Tablet) 50 mg PO NOW ONE Stop: 11/23/24 21:14 Last Admin: 11/23/24 21:23 Dose: 50 mg Documented By: RENETTA Vital Signs Vital signs: Vital Signs - 8 hr 11/23/24 22:30 Respiratory Rate 16 Pulse Oximetry 96 MDM - Fall MDM Narrative Medical decision making narrative: Patient is having has a female to be hypertensive at a mechanical fall today. Had multiple imaging studies done in the emergency department fortunately no fracture intracranial hemorrhage or other process identified Imaging reviewed Head CT no acute intracranial process Cervical spine CT moderate spondylosis no fracture CT facial bones no acute process Left knee x-ray no fracture Right knee x-ray no fracture Left hand no fracture She does have a upper lip laceration going through the vermilion border but does not have any intraoral lacerations appreciated. Easily repaired with absorbable suture. Noted to have elevated blood pressure given her nightly dose of losartan. She was an appointment with her primary care provider in 2 days. Discharge Plan Departure Patient Disposition: Home Clinical Impression: Fall, Laceration of vermilion border of upper lip, Contusion of hand, left, Contusion of face Instructions: DI for Laceration Repair Activity Restrictions/Additional Instructions: *You have been diagnosed with lip laceration facial contusion and contusion *What to do: At this time no broken bones lots of bruising. Keep face clean and dry with soap and water would avoid face creams and makeup over sutures Sutures should dissolve in the next 7-14 days, they should not need removal however there maybe pieces that do not completely resolve *Continue to take medications as directed Tylenol 1000 mg every 6 hours if needed for [id number] pain *Follow up with your primary care provider in 2-3 days or call [phone] See your PCP this week as scheduled *Return to ER if you should have increasing headache nausea vomiting weakness redness swelling or any new, worsening or concerning symptoms Prescriptions: No Action aspirin 81 mg capsule 81 mg PO DAILY Qty: 60 0RF amlodipine 10 mg tablet 10 mg PO DAILY Qty: 30 0RF clopidogrel [Plavix] 75 mg tablet 75 mg PO DAILY Qty: 21 0RF Referrals: Miscellaneous,Doctor, MD [Primary Care Provider] - Stand Alone Forms: Patient Portal/API/Survey
[2024-11-23] MEDS: LIDOCAINE 1% W/EPI 10ML SUBCUT (21:21)
[2024-11-23] MEDS: LOSARTAN 50 MG TABLET PO (21:23)
[2024-11-23] MEDS: ACETAMINOPHEN 325 MG TABLET 975 MG PO (21:24)
== END 2024-11-23 22:43 | disposition home or self-care (01) ==
PROVIDERS: Emergency Provider Emergency Medicine
DX: S01.511A Laceration without foreign body of lip, initial encounter (principal); S60.222A Contusion of left hand, initial encounter; S00.83XA Contusion of other part of head, initial encounter; I10 Essential (primary) hypertension; W01.0XXA Fall on same level from slipping, tripping and stumbling without subsequent striking against object, initial encounter; Z79.01 Long term (current) use of anticoagulants
CPT/HCPCS: 12011; 70450; 70486; 72125; 73130; 73562; 99284